=== PATIENT | female | born 1975 | race Caucasian/White ===

== ENCOUNTER → 2022-04-10 | Day surgery (SDC) | payer OTHER ==
[2022-04-09 12:06] LABS: COVID AG,FIA SOURCE NASAL SWAB
[~2022-04-10] VITALS: Ht 157.5 cm; Wt 86.4 kg
[~2022-04-10] MED LIST: LIDOCAINE 2% 5 ML JELLY TP ONE; OXYGEN THERAPY IH SCH; PROPOFOL 1% 20 ML VIAL IVP ONE; SODIUM CHLORIDE 0.9% 1,000 ML IV ONE
== END | disposition still patient (30) ==
LOC: SURGERY 07:48
PROVIDERS: ATTEND Specialist
DX: K62.5 Hemorrhage of anus and rectum (principal); K64.8 Other hemorrhoids; K64.4 Residual hemorrhoidal skin tags; Z82.49 Family history of ischemic heart disease and other diseases of the circulatory system; Z98.890 Other specified postprocedural states; Z79.899 Other long term (current) drug therapy; Z20.822 Contact with and (suspected) exposure to COVID-19
CPT/HCPCS: 87426; 45398; 84703; 36415; C9803; J2704

== ENCOUNTER 2022-07-28 16:43 | Emergency (ER) | payer OTHER ==
[~2022-07-28] VITALS: Ht 157.5 cm; Wt 86.4 kg
[2022-07-28] MEDS ORDERED: CHOL400T56 PO (16:53)
[2022-07-28] MEDS ORDERED: SEMA0.253 INJ (16:53)
[2022-07-28 16:55] VITALS: BP 136/97
[2022-07-28] MEDS ORDERED: PERTUSS(ACELL),DIPH,TET VAC/PF 0.5 ML SYRINGE IM. ONE (18:15)
[2022-07-28] MEDS ORDERED: BACITRACIN 0.9 GM PACKET OINTMENT TP ONE (18:15)
[2022-07-28] MEDS ORDERED: LIDOCAINE 1% 10 ML VIAL SQ ONE (18:15)
== END 2022-07-28 19:26 | disposition home or self-care (01) ==
LOC: EMS 16:45
DX: S61.012A Laceration without foreign body of left thumb without damage to nail, initial encounter (principal); Z98.890 Other specified postprocedural states; W26.8XXA Contact with other sharp object(s), not elsewhere classified, initial encounter; Y93.89 Activity, other specified; Y92.89 Other specified places as the place of occurrence of the external cause; Y99.8 Other external cause status
CPT/HCPCS: 99283; 90715; 90471; 12002; J3490